=== PATIENT | male | born 1985 | race Two or more races ===

== ENCOUNTER 2017-07-12 10:44 | Emergency (ER) | payer SELFPAY ==
[~2017-07-12] VITALS: Ht 167.6 cm; Wt 77.1 kg
[2017-07-12 11:00] VITALS: BP 138/82
[2017-07-12 12:37] LABS: NEGATIVE OBC STREP NEG; POSITIVE OBC STREP POS
[2017-07-12 12:41] LABS: BILIRUBIN,URINE NEGATIVE (NEG); GLUCOSE,URINE NEGATIVE (NEG); NITRITE,URINE NEGATIVE (NEG); PH,URINE 7.5; PROTEIN,URINE NEGATIVE (NEG-TRACE); UROBILINOGEN,URINE 0.2 mg/dL (0.2 mg/dL)
--- NOTE | 2017-07-12 12:45 | PHYS DOC ---
Past Medical History Past Medical History: No Pertinent History Past Surgical History: No Surgical History Alcohol Use: None Drug Use: Marijuana Adult General Chief Complaint Chief Complaint: SORE THROAT [facility] HPI Patient is a 31 year old male presents to the emergency department with family who is interpreting for the patient stating that he has had a cough and congestion with sore throat and right ear neck pain. Patient states he's had chills but is denies fever, patient also states that he has left abdominal pain and discomfort with last normal bowel movement this morning. Patient also states he is having lost left testicular pain. He denies any discharge coming from the [place]. Review of Systems Review of Systems Constitutional: Denies fever or chills [] Eyes: Denies change in visual acuity, redness, or eye pain [] HENT: Complaining of nasal congestion sore throat Respiratory: Denies cough or shortness of breath [] Cardiovascular: No additional information not addressed in HPI [] GI: Left sided abdominal pain, denies nausea, vomiting, bloody stools or diarrhea [] : Denies dysuria or hematuria [] Musculoskeletal: Denies back pain or joint pain [] Integument: Denies rash or skin lesions [] Neurologic: Denies headache, focal weakness or sensory changes [] Endocrine: Denies polyuria or polydipsia [] Allergies Allergies Allergies Coded Allergies Type Severity Reaction Last Updated Verified No Known Drug Allergies 07/12/17 No Physical Exam Physical Exam Constitutional: Well developed, well nourished, no acute distress, non-toxic appearance. [] HENT: Normocephalic, atraumatic, bilateral external ears normal, oropharynx moist, no oral exudates, nose normal. Bilateral tympanic membranes appear to be normal. Throat with postnasal drip and slightly red no exudate noted. Eyes: PERRLA, EOMI, conjunctiva normal, no discharge. [] Neck: Normal range of motion, no tenderness, supple, no stridor. [] Cardiovascular:Heart rate regular rhythm, no murmur [] Lungs & Thorax: Bilateral breath sounds clear to auscultation [] Abdomen: Bowel sounds hypoactive, soft, left lower quadrant tenderness, no masses, no pulsatile masses. [] Skin: Warm, dry, no erythema, no rash. [] Back: No tenderness Extremities: No tenderness, no cyanosis, no clubbing, ROM intact, no edema. [] Neurologic: Alert and oriented X 3, normal motor function, normal sensory function, no focal deficits noted. [] Psychologic: Affect normal, judgement normal, mood normal. [] Current Patient Data Vital Signs Vital Signs Date Time Temp Pulse Resp B/P (MAP) Pulse Ox O2 Delivery O2 Flow Rate FiO2 07/12/17 11:00 98.2 82 16 96 Room Air 98.2 Lab Values Laboratory Tests Test 07/12/17 12:10 07/12/17 12:30 Group A Streptococcus Rapid Negative (NEGATIVE) Urine Collection Type Unknown Urine Color Yellow Urine Clarity Clear Urine pH 7.5 Urine Specific [place] 1.010 Urine Protein Negative mg/dL (NEG-TRACE) Urine Glucose (UA) Negative mg/dL (NEG) Urine Ketones (Stick) Negative mg/dL (NEG) Urine Blood Negative (NEG) Urine Nitrite Negative (NEG) Urine Bilirubin Negative (NEG) Urine Urobilinogen Dipstick 0.2 mg/dL (0.2 mg/dL) Urine Leukocyte Esterase Negative (NEG) Urine RBC 0 /HPF (0-2) Urine WBC 0 /HPF (0-4) Urine Squamous Epithelial Cells Occ /LPF Urine Bacteria 0 /HPF (0-FEW) EKG EKG [] Radiology/Procedures Radiology/Procedures [][address] [address] IMAGING REPORT Signed PATIENT: MIGEL NORMAN ACCOUNT: [id number] : 1985 LOCATION: ER AGE: 31 SEX: M EXAM STATUS: REG ER ORD. PHYSICIAN: ADRIANA ZEE APRN REASON: left testicular pain x 3 days PROCEDURE: TESTICULAR/SCROTUM Procedure: Testicle Sonogram Clinical information: Left testicular pain for 3 days Date of service: 07/12/17 .Comparison: None available Technique: Real-time grayscale, color-flow, duplex Doppler and spectral analysis of the scrotal contents was performed and images are obtained. Findings: The testicles demonstrate normal size, contour and echogenicity. The right testicle measures 3.8 x 2.8 x 1.8 cm and left testicle measures 3.7 x 2.4 x 1.8 cm. There is normal testicular perfusion bilaterally. There is no evidence of a intratesticular mass lesion . The epididymis demonstrate normal size, contour and echogenicity. There is a 1.0 cm left epididymal head cyst. There is trace left hydrocele. The scrotal soft tissues are unremarkable. Impression: 1. Left epididymal head cyst with trace left hydrocele. DICTATED and SIGNED BY: AMA KIDD MD DATE: 07/12/17 1327 CC: ADRIANA ZEE APRN; NO PCP; NON,STAFF ~ [facility] [address] [place] [address] IMAGING REPORT Signed PATIENT: MIGEL NORMAN ACCOUNT: [id number] : 1985 LOCATION: ER AGE: 31 SEX: M EXAM STATUS: REG ER ORD. PHYSICIAN: ADRIANA ZEE APRN REASON: left testicular pain x 3 days/ LEFT SIDED ABDOMINAL PAIN PROCEDURE: KUB KUB Indication: Left-sided abdominal pain radiating down to left testicle for 2 to 3 days Technique: Supine AP view of the abdomen and pelvis Comparison: None Findings: No abnormally dilated bowel loops. Moderate amount of stool seen in the ascending colon. No abnormal calcific densities. Visualized bones are within normal limits. Impression: No abnormally dilated bowel loops to suggest bowel obstruction. DICTATED and SIGNED BY: ANA DEL TORO DO DATE: 07/12/17 1250 CC: ADRIANA ZEE APRN; NO PCP; NON,STAFF ~ Course & Med Decision Making Course & Med Decision Making Pertinent Labs and Imaging studies reviewed. (See chart for details) Patient will be discharged home in stable condition. He'll be provided with Levaquin for a sinusitis infection as well as to cover for epididymitis cyst. Patient will be encouraged to follow-up with urology for further evaluation. Signs and symptoms to return back to emergency department as been provided. Patient agrees with discharge instructions, treatment regimens and follow-up recommendations. Patient will be discharged home in stable condition all questions and concerns of been answered at the patient's bedside.. [] Dragon Disclaimer Dragon Disclaimer This electronic medical record was generated, in whole or in part, using a voice recognition dictation system. Departure Departure Impression: Primary Impression: Epididymal cyst Additional Impressions: Hydrocele Sinusitis Disposition: HOME, SELF-CARE Condition: STABLE Referrals: NO PCP (PCP) Patient Instructions: Epidermal Cyst, [id number], Hydrocele, , Sinusitis, [id number] Additional Instructions: Your x-rays were negative for any acute findings in your abdomen. Your ultrasound showed epididymitis cyst as well as a hydrocele. Your also being treated for a sinusitis infection. Levaquin as directed. Drink plenty of fluids. Follow-up with urology in approximately 3-5 days. Return back to emergency prior signs symptoms of become worse. Scripts Levofloxacin (LEVAQUIN) 500 Mg Tablet 1 TAB PO DAILY, #7 TAB Prov: ADRIANA ZEE APRN 07/12/17 Problem Qualifiers Additional Impressions: Hydrocele Hydrocele type: unspecified Qualified Codes: N43.3 - Hydrocele, unspecified Sinusitis Sinusitis location: unspecified location Chronicity: acute Recurrence: not specified as recurrent Qualified Codes: J01.90 - Acute sinusitis, unspecified ADRIANA ZEE INFRASTRUCTURE DEVELOPER Jul 12, 2017 12:45
--- NOTE | 2017-07-12 12:54 | RAD ---
KUB Indication: Left-sided abdominal pain radiating down to left testicle for 2 to 3 days Technique: Supine AP view of the abdomen and pelvis Comparison: None Findings: No abnormally dilated bowel loops. Moderate amount of stool seen in the ascending colon. No abnormal calcific densities. Visualized bones are within normal limits. Impression: No abnormally dilated bowel loops to suggest bowel obstruction.
[2017-07-12 13:04] LABS: BACTERIA,URINE 0 /HPF (0-FEW); RBC,URINE 0 /HPF (0-2); SQUAMOUS EPITHELIAL CELL,UR OCC /LPF; WBC,URINE 0 /HPF (0-4)
--- NOTE | 2017-07-12 13:35 | RAD ---
Procedure: Testicle Sonogram Clinical information: Left testicular pain for 3 days Date of service: 07/12/17 .Comparison: None available Technique: Real-time grayscale, color-flow, duplex Doppler and spectral analysis of the scrotal contents was performed and images are obtained. Findings: The testicles demonstrate normal size, contour and echogenicity. The right testicle measures 3.8 x 2.8 x 1.8 cm and left testicle measures 3.7 x 2.4 x 1.8 cm. There is normal testicular perfusion bilaterally. There is no evidence of a intratesticular mass lesion . The epididymis demonstrate normal size, contour and echogenicity. There is a 1.0 cm left epididymal head cyst. There is trace left hydrocele. The scrotal soft tissues are unremarkable. Impression: 1. Left epididymal head cyst with trace left hydrocele.
[2017-07-12] MEDS ORDERED: LEVO500T59 PO (13:55)
== END 2017-07-12 14:14 | disposition home or self-care (01) ==
LOC: ER 10:44
DX: N50.3 Cyst of epididymis (principal); N43.3 Hydrocele, unspecified; J01.90 Acute sinusitis, unspecified
CPT/HCPCS: 74000; 76870; 81001; 87070; 87491; 87591; 87880; 99285-25